=== PATIENT | female | born 1970 | race Caucasian/White ===

== ENCOUNTER 2021-12-10 09:53 | Day surgery (SDC) | payer BC ==
[2021-12-09 19:54] VITALS: BMI 27.6
[2021-12-10 12:54] VITALS: RESP 18
[2021-12-10 14:39] VITALS: BP 99/50; PULSE 84; TEMP 97.4
== END 2021-12-10 14:40 | disposition home or self-care (01) ==
LOC: FASU-ENDO 09:53
PROVIDERS: ATTEND Internal Medicine
PROC: 0DB68ZX Excision of Stomach, Via Natural or Artificial Opening Endoscopic, Diagnostic (ICD-10-PCS; 2021-12-10)
PROC: 0DB48ZX Excision of Esophagogastric Junction, Via Natural or Artificial Opening Endoscopic, Diagnostic (ICD-10-PCS; principal; 2021-12-10 13:49)
DX: K29.50 Unspecified chronic gastritis without bleeding (principal); K21.00 Gastro-esophageal reflux disease with esophagitis, without bleeding; R10.13 Epigastric pain
CPT/HCPCS: 81025; 87426; 88305-TC; 88342-TC; C9803-CS; U0003; U0005